=== PATIENT | male | born 1930 | race Caucasian/White ===

== ENCOUNTER 2019-06-30 10:20 | Emergency (ER) | payer MEDICARE ==
[~2019-06-30 10:20] MED LIST: Sodium Chloride 0.9% 500 ML BAG ONE
[2019-06-30 10:55] LABS: Hemoglobin 13.8 g/dL (14.0-18.0); Mean Corpuscular HGB CONC 32.4 g/dL (32.0-36.0); Mean Corpuscular Hemoglobin 30.5 pg (27.0-31.0); Mean Corpuscular Volume 94.3 fL (78.0-98.0); Mean Platelet Volume 9.2 fL (7.4-10.4); Platelet Count 199 thou/uL (130-400); RBC Distribution Width 11.2 % (11.5-14.5); Red Blood Cell (RBC) Count 4.52 mill/uL (4.70-6.10); White Blood Cell (WBC) Count 4.3 thou/uL (4.8-10.8)
[2019-06-30 11:06] LABS: ALT (SGPT) 16 U/L (8-55); AST (SGOT) 24 U/L (5-34); Albumin 3.9 g/dL (3.4-4.8); Alkaline Phosphatase 91 U/L (40-110); Anion Gap 18 mmol/L (10-20); BUN (Urea Nitrogen) 55 mg/dL (8.4-25.7); Bilirubin, Total 0.4 mg/dL (0.2-1.2); Calc. Creatinine Clearance 0 mL/min (70-130); Calcium 8.8 mg/dL (7.8-10.44); Carbon Dioxide 16 mmol/L (23-31); Chloride 105 mmol/L (98-107); Estimated GFR-MDRD 23; Globulin 3.4 g/dL (2.4-3.5); Glucose 102 mg/dL (83-110); Potassium 4.3 mmol/L (3.5-5.1); Protein, Total 7.3 g/dL (5.8-8.1); Sodium 135 mmol/L (136-145)
[2019-06-30 11:07] LABS: Anisocytosis SLIGHT = 6-15 cells (100X) (0-5/hpf); Band 6 % (5-11); Lymphocytes 18 % (21-51); MDiff Complete? YES; Monocytes 12 % (0-10); Neutrophil 64 % (42-75); Platelet Morphology Comment Appears Adequate
[2019-06-30 11:24] LABS: CKMB 3.8 ng/mL (0-6.6)
--- NOTE | 2019-06-30 12:04 | RAD ---
XR Chest 1 View Portable HISTORY: Cough COMPARISON: None FINDINGS: The heart size is normal. The lungs are well expanded without focal areas of consolidation, pneumothorax or pleural effusions. IMPRESSION: No radiographic evidence of acute cardiopulmonary process.
[2019-06-30] MEDS ORDERED: Aspirin Chewable 81 MG TAB ONE (12:20)
[2019-06-30 13:34] LABS: INR-International Normal Ratio 0.9; PTT 25.5 SEC (22.9-36.1); Prothrombin Time 12.3 SEC (12.0-14.7)
== END 2019-06-30 15:55 | disposition short-term general hospital (02) ==
LOC: EDBD 10:20 → MADERS 10:20
DX: I48.91 Unspecified atrial fibrillation (principal); J10.1 Influenza due to other identified influenza virus with other respiratory manifestations; N28.9 Disorder of kidney and ureter, unspecified; N18.3 Chronic kidney disease, stage 3 (moderate)
CPT/HCPCS: 36415; 71045; 80053; 82553; 83605; 83880; 84484; 85025; 85610; 85730; 87804; 93005; 96361; 96374; J7050